=== PATIENT | male | born 1990 | race Caucasian/White ===

== ENCOUNTER → 2023-06-02 15:39 | Outpatient (CLI) | payer OTHER, SELFPAY ==
--- NOTE | ~2023-06-02 | XR_ITS ---
EXAMINATION: XR shoulder RT min 2V DATE: 06/02/2023 16:55 INDICATION: Right shoulder pain. TECHNIQUE: 4 views of right shoulder were obtained. COMPARISON: None. FINDINGS: Bone alignment is normal. No fracture. Glenohumeral joint is normal. There is mild acromioc lavicular joint osteoarthritis. IMPRESSION: 1. Mild acromioclavicular joint osteoarthritis. Reviewed, dictated and finalized at location A. LESS DEVELOPMENT MANAGER
--- NOTE | ~2023-06-02 | US_ITS ---
EXAMINATION: US soft tissue pelvic DATE: 06/02/2023 16:04 INDICATION: Right lower quadrant/inguinal pain x1 week, patient lifts weights. TECHNIQUE: Grayscale and Doppler ultrasound images of the right inguinal region were obtained. COMPARISON: None. FINDINGS: Sonographic interrogation of the area of clinical concern in the right lower quadrant/right inguinal area, revealed no cystic or solid mass. Several normal sized inguinal lymph nodes are prese nt. No herniation detected at rest or with Valsalva. IMPRESSION: No sonographic abnormality detected in the area of clinical concern. Reviewed, dictated and finalized at location K. AL NURSE
== END ==
PROVIDERS: PCP Nurse Practitioner Family; Visit Provider Nurse Practitioner Family
DX: M19.011 Primary osteoarthritis, right shoulder (principal)
CPT/HCPCS: 73030; 76857

== ENCOUNTER 2023-06-03 15:36 | Emergency (ER) | payer OTHER, SELFPAY ==
--- NOTE | ~2023-06-03 | CT_ITS ---
EXAMINATION: CT abdomen pelvis w con DATE: 06/03/2023 20:39 INDICATION: Right lower quadrant abdominal pain radiating to the scrotum TECHNIQUE: Computed tomography (CT) of the abdomen and pelvis was performed with 100 mL Omnipaque-350 intravenous contrast. Automated exposure control and iterative reconstruction technique were employe d. The dose-length product was 504.00 mGy-cm. COMPARISON: None FINDINGS: Lung bases are clear. Heart size is normal. No pericardial or pleural effusion. Liver, gallbladder, s pleen, pancreas, bilateral adrenal glands and kidneys are normal. Moderate to large amount of stool s cattered throughout the colon. No dilated bowel to suggest obstruction. Normal appendix bladder is no rmal. No free intraperitoneal gas or fluid. No pathologically enlarged abdominal or pelvic lymphadeno henny. Mild likely physiologic anterior wedging at T12. IMPRESSION: 1. No acute intra-abdominal/pelvic process. Specifically the appendix is normal. 2. Moderate to large amount of stool throughout the colon which could be seen with constipation. Reviewed, dictated and finalized at location A. ERY ASSEMBLER IMPRESSION: 1. No acute intra-abdominal/pelvic process. Specifically the appendix is normal . 2. Moderate to large amount of stool throughout the colon which could be seen w ith constipation.
--- NOTE | ~2023-06-03 | US_ITS ---
EXAMINATION: US scrotum doppler DATE: 06/03/2023 20:12 INDICATION: Right scrotal pain TECHNIQUE: Testicular sonogram utilizing grayscale and Doppler COMPARISON: None. FINDINGS: The right testis measures 4.6 x 2.4 x 3.8 cm. The left testis measures 4.0 x 2.2 x 2.6 cm. Symmetric normal grayscale appearance to both testes. There is normal vascular flow to both testes. The right e pididymis is normal with normal vascular flow. The left epididymis is normal with normal vascular eusebia w. There is no varicocele. Small right and minimal left hydroceles. IMPRESSION: 1. Small right and minimal left hydroceles. Otherwise normal scrotal ultrasound. Reviewed, dictated and finalized at location A. TROMECHANICAL ASSEMBLER IMPRESSION: 1. Small right and minimal left hydroceles. Otherwise normal scrotal ultrasoun d.
[2023-06-03 16:00] VITALS: BP 146/80; PULSE 74; RESP 16; TEMP 36.7; O2SAT 100
[2023-06-03 18:27] VITALS: BP 138/77; PULSE 88; RESP 16; TEMP 36.9; O2SAT 98
[2023-06-03 19:30] LABS: Basophils Absolute Auto 0.1 K/mm3 (0.0-0.1); Basophils Percent Auto 0.7 % (0.2-1.2); Eosinophils Absolute Auto 0.2 K/mm3 (0-0.3); Eosinophils Percent Auto 3.1 % (0-4.4); Hematocrit 48.6 % (42.0-52.0); Hemoglobin 16.1 g/dL (14.0-18.0); Immature Granulocyte Absolute 0.01 K/mm3 (0.00-0.031); Immature Granulocyte Percent A 0.1 % (0-0.5); Lymphocytes Absolute Auto 2.38 K/mm3 (0.9-3.2); Lymphocytes Percent Auto 31.2 % (18.3-44.2); Mean Corpuscular HGB Conc 33.1 g/dl (32-36); Mean Corpuscular Hemoglobin 30.6 pg (26-34); Mean Corpuscular Volume 92.2 fl (80-100); Mean Platelet Volume 10.4 fl (7.4-10.4); Monocytes Absolute Auto 0.7 K/mm3 (0.1-0.6); Monocytes Percent Auto 8.5 % (2.6-8.5); Neutrophils Absolute Auto 4.3 K/mm3 (1.3-6.7); Neutrophils Percent Auto 56.4 % (45.5-73.1); Platelet Count Result 233 k/mm3 (150-375); Red Blood Count 5.27 M/mm3 (4.6-6.20); White Blood Count 7.6 K/mm3 (4.5-10.0)
[2023-06-03 19:43] LABS: Anion Gap 8 mmol/L (8-16); Blood Urea Nitrogen 22 mg/dL (9-20); Calcium 9.3 mg/dL (8.4-10.2); Carbon Dioxide 27 mmol/L (22-30); Chloride 102 mmol/L (98-107); Estimated Glomerular Filt Rate > 60; Glucose 98 mg/dL (65-110); Potassium 4.3 mmol/L (3.4-5.0); Sodium 137 mmol/L (137-145)
--- NOTE | 2023-06-03 19:47 | ED.GENADULT ---
HPI - General Adult General Chief complaint: Urogenital-Male Stated complaint: L lower abdomen/genital pain Time Seen by Provider: 06/03/23 19:10 History of Present Illness HPI narrative: patient 33-year-old gentleman who presents emergency department with chief complaint of right inguinal and right testicle pain. Patient reports that he was lifting some heavy material and noticed that he had a pulling sensation in his right groin area the patient has rested for about a week and that is not really been bothering him until the last few days the patient reports daily has a pulling sensation into his right testicle area and reports that his right testicle pulls up a lot. The patient denies swelling reports that he saw his primary care provider who did a outpatient soft tissue ultrasound of his right lower quadrant that was reported as negative. Related Data Home Medications Medication Instructions Recorded Confirmed multivitamin (Daily Multi-Vitamin 1 tablet PO DAILY 05/31/23 05/31/23 tablet) Allergies Allergy/AdvReac Type Severity Reaction Status Date / Time No Known Allergies Allergy Mild Verified 06/03/23 19:20 Review of Systems Review of Systems: A 10 system review of systems was completed on the patient and is negative except for what is stated in the HPI. Nursing and ancillary documentation was reviewed. PMFSH Past Medical History Medical History Acute non-recurrent maxillary sinusitis Headache Wrist pain, left Family History Family History Grandparent Diabetes mellitus Family history of cardiovascular disease Acute myocardial infarction Social History Social History Smoking status: Never smoker Alcohol intake: current Drinks per week: 1 Substance use: never Substance use type: does not use Lack of Transportation: No Lack of Food: Never True Current Housing: I Have Housing Concerned About Future Housing: No Difficulty Paying Gas/Electric Bills: No Difficulty Paying for Meds: No Currently Unemployed: No Education: Bachelor's Degree Difficulty w/ Childcare or Family Care: No Exam Narrative: GENERAL: Well-appearing, well-nourished, and in no acute distress. HEAD: Normocephalic, atraumatic. EYES: PERRLA and EOMI. ENT: Nares clear, no rhinorrhea or epistaxis. Mucous membranes moist. NECK: Supple. CHEST: Clear to auscultation. No respiratory distress. HEART: Regular rate and rhythm. No murmur heard. Normal peripheral pulses. ABDOMEN: Soft, nontender, nondistended, normal active bowel sounds. : Tenderness to palpation in the right hemiscrotum no erythema no crepitance no necrotic tissue EXTREMITIES: Normal range of motion. No edema. SKIN: Warm, dry, no rash. NEURO: No focal deficits. Alert and oriented x3. PSYCH: Normal mood and affect. Course Vital Signs Vital signs: Vital Signs Temperature 36.7 C 06/03/23 16:00 Pulse Rate 74 06/03/23 16:00 Respiratory Rate 16 06/03/23 16:00 Blood Pressure 146/80 H 06/03/23 16:00 Pulse Oximetry 100 06/03/23 16:00 Temperature 36.9 C 06/03/23 18:27 Pulse Rate 88 06/03/23 18:27 Respiratory Rate 16 06/03/23 18:27 Blood Pressure 138/77 06/03/23 18:27 Pulse Oximetry 98 06/03/23 18:27 Medical Decision Making MDM Narrative Medical decision making narrative: differential diagnosis includes hernia, testicular torsion, epididymitis, orchitis, laboratory studies were obtained and did not show any acute abnormalities CT scan of the abdomen pelvis showed no acute abnormality other than constipation ultrasound showed no evidence of torsion just small bilateral hydroceles Vital Signs Vital Signs: Vital Signs Temperature 36.7 C 06/03/23 16:00 Pulse Rate 74 06/03/23 16:00 R
[2023-06-03 20:27] LABS: Appearance Urine Clear (Clear); Color Urine Yellow (Yellow); Protein Urine Negative (Negative); Specific Grav Ur 1.025 (1.001-1.035)
[2023-06-03 20:28] LABS: Add Urine Microscopic? NO; Bilirubin Urine Negative (Negative); Blood Urine Negative (Negative); Glucose Urine UA Negative (Negative); Ketones Urine Trace mg/dL (Negative); Leukocyte Esterase Ur Negative LEU/UL (Negative); Nitrate Urine Negative (Negative)
[2023-06-03] MEDS: MAGNESIUM CITRATE 300 ML BTL PO (21:47)
[2023-06-03 21:52] VITALS: BP 131/77; PULSE 83; RESP 16; O2SAT 100
== END 2023-06-03 21:56 | disposition home or self-care (01) ==
PROVIDERS: Physician Assistant; Emergency Provider Emergency Medicine; PCP Nurse Practitioner Family
DX: R10.31 Right lower quadrant pain (principal)
CPT/HCPCS: 36415; 74177; 76870; 80048; 81003; 85025; 93976; 99284; A9270; Q9967

== ENCOUNTER 2024-04-27 13:38 | Outpatient (CLI) | payer OTHER, SELFPAY ==
--- NOTE | 2024-04-27 15:46 | WPDPFTINT ---
PFT Procedure Performed PFT Procedure Performed Spirometry w/o Bronchodil PFT Interpretation DOS: 04/27/2024 REQUESTING: Leana Puente NP REASON FOR TESTING: screening exam PULMONARY FUNCTION TESTS Results are reliable and reproducible. Repeatability of spirometry FEV1 maneuver is Grade A. Spirometry: The FEV1 is . The FEV1 is 4.87 L, 98%, normal. The FVC is 6.02 L, 98%, normal. The FEV1/FVC ratio is 81%, normal. Flow volume loop: The flow volume loop is normal. IMPRESSION: Normal spirometry. Thuy Silva MD
== END 2024-04-27 13:39 | disposition home or self-care (01) ==
LOC: ANHPFT 13:42
PROVIDERS: PCP Family Medicine; Visit Provider Nurse Practitioner Family
DX: Z02.89 Encounter for other administrative examinations (principal)
CPT/HCPCS: 94375

== ENCOUNTER 2024-11-08 07:48 | Outpatient (CLI) | payer OTHER, SELFPAY ==
--- NOTE | ~2024-11-08 | MR_ITS ---
MRI of the right shoulder Technique: Axial proton-density fat-sat images, coronal proton density fat-sat and T2 fat-sat images, and sagittal T1-weighted and T2 fat-sat images were acquired. Clinical History: Pain Findings: There is minimal degenerative change at the AC joint. Coracoclavicular, coracoacromial, and coracohumeral ligaments are intact. Supraspinatus and infraspinatus tendons demonstrate mild tendinosis, without partial or full-thicknes s tear. Subscapularis tendon is intact. Tendon of long head biceps is intact. No labral tear evident. Inferior glenohumeral ligament is intact. No degenerative change or effusion of the glenohumeral join t. No fluid distention of the subacromial/subdeltoid bursa. No muscle atrophy or edema. Impression: Mild rotator cuff tendinosis and minimal AC joint degenerative change. Reviewed, dictated and finalized at [facility]. Impression: Mild rotator cuff tendinosis and minimal AC joint degenerative change.
== END 2024-11-08 07:49 | disposition home or self-care (01) ==
LOC: MICIMG 07:49
PROVIDERS: PCP Family Medicine; Visit Provider Student in an Organized Health Care Education/Training Program
DX: M75.81 Other shoulder lesions, right shoulder (principal); M25.511 Pain in right shoulder; G89.29 Other chronic pain
CPT/HCPCS: 73221